=== PATIENT | female | born 1975 | race Caucasian/White ===

== ENCOUNTER 2018-12-25 15:19 | Emergency (ER) | payer MEDICAID ==
[~2018-12-25] VITALS: Ht 162.6 cm; Wt 91.5 kg
--- NOTE | 2018-12-25 17:41 | NUR ---
TO TRAN FROM LOBBY
--- NOTE | 2018-12-25 18:13 | NUR ---
PT C/O OF EPIGASTRIC PAIN X4 DAYS WITH NAUSEA AND SOME DIARRHEA, DENIES RADIATING PAIN. PAIN IS WORSE AFTER EATING. CONNECTED TO MONITORING. CALL LIGHT IN REACH. MD AT BEDSIDE. AWAITING ORDERS AT THIS TIME.
[2018-12-25] MEDS ORDERED: HYDROmorphone 1 MG/ML, 1ML VIAL ONE (18:27)
[2018-12-25] MEDS ORDERED: ONDANSETRON 2MG/ML, 2ML ONE (18:27)
[2018-12-25] MEDS ORDERED: HYDROmorphone 2 MG/ML, 1ML IVPush PRN (18:30)
[2018-12-25] MEDS ORDERED: PLEASE ENTER ALLERGIES MC SCH (18:30)
[2018-12-25] MEDS ORDERED: ONDANSETRON 2MG/ML, 2ML IVPush ONE (18:30)
[2018-12-25] MEDS ORDERED: SODIUM CHLORIDE 0.9% 1,000ML IVBOLUS ONE (18:30)
--- NOTE | 2018-12-25 18:36 | NUR ---
MEDS ADMINISTERED PER APR FOR EPIGASTRIC PAIN. PT RESTING ON GURNEY, TALKING ON PHONE.
[2018-12-25 18:37] LABS: BASOPHILS # (AUTO) 0.07 x10^3/uL (0-0.1); BASOPHILS % (AUTO) 1 % (0-1); EOSINOPHILS # (AUTO) 0.21 x10^3/uL (0-0.4); EOSINOPHILS % (AUTO) 2 % (1-7); LYMPHOCYTES # (AUTO) 3.03 x10^3/uL (1-3.4); LYMPHOCYTES % (AUTO) 34 % (22-44); MD NO; MEAN CORPUSCULAR HEMOGLOBIN 27.5 pg (27.0-34.8); MEAN CORPUSCULAR HGB CONC 32.8 g/dL (32.4-35.8); MEAN CORPUSCULAR VOLUME 83.9 fL (80-100); MEAN PLATELET VOLUME 9.7 fL (7.4-10.4); MONOCYTES # (AUTO) 0.51 x10^3/uL (0.2-0.8); MONOCYTES % (AUTO) 6 % (2-9); NEUTROPHILS % (AUTO) 58 % (42-75); PLATELET COUNT 329 x10^3/uL (130-400); RED BLOOD COUNT 5.48 x10^6/uL (3.82-5.3)
[2018-12-25 18:46] LABS: ALANINE AMINOTRANSFERASE 28 U/L (12-78); ALBUMIN 3.8 g/dL (3.4-5.0); ANION GAP 7 mmol/L (5-15); CALCIUM 8.8 mg/dL (8.5-10.1); CHLORIDE 107 mmol/L (98-107); CREATININE 0.71 mg/dL (0.55-1.02)
[2018-12-25 18:51] LABS: ALKALINE PHOSPHATASE 119 U/L (45-117); BILIRUBIN,TOTAL 0.6 mg/dL (0.2-1.0); TOTAL PROTEIN 7.9 g/dL (6.4-8.2)
--- NOTE | 2018-12-25 19:13 | NUR ---
ALL RESULTS ARE BACK AT THIS TIME. CHART UP FOR RECHECK.
[2018-12-25 20:08] VITALS: BP 112/67
--- NOTE | 2018-12-25 20:14 | NUR ---
Patient/Caregiver given discharge instructions and they have confirmed that they understand the instructions. Patient ambulatory with steady gait.
== END 2018-12-25 20:16 | disposition home or self-care (01) ==
LOC: ED 20:00
DX: R10.11 Right upper quadrant pain (principal); R10.13 Epigastric pain; R11.2 Nausea with vomiting, unspecified
CPT/HCPCS: 36415; 76700; 80053; 83690; 84703; 85025; 96361; 96374; 96375; 99284; J1170; J2405; J7030